=== PATIENT | female | born 2000 | race Hispanic/Latino ===

== ENCOUNTER 2021-11-22 15:40 | Emergency (ER) | payer OTHER ==
[~2021-11-22] VITALS: Ht 157.5 cm; Wt 47.7 kg
[2021-11-22 15:41] VITALS: BP 116/64
[2021-11-22] MEDS ORDERED: IBUP-1114 PO (20:10)
[2021-11-22 20:22] LABS: HEMATOCRIT 36.2 % (36.0-47.0); HEMOGLOBIN 12.2 g/dl (12.0-15.5); MEAN CORPUSCULAR HEMOGLOBIN 28.4 pg (27.0-33.0); MEAN CORPUSCULAR HGB CONC 33.7 g/dl (32.0-36.5); MEAN CORPUSCULAR VOLUME 84.4 fl (80.0-96.0); PLATELET COUNT, AUTOMATED 221 10^3/uL (150-450); RED BLOOD COUNT 4.29 10^6/uL (4.00-5.40); WHITE BLOOD COUNT 6.3 10^3/uL (4.0-10.0)
[2021-11-22] MEDS ORDERED: ACETAMINOPHEN 500 MG TAB PO ONE (20:50)
[2021-11-22 22:21] LABS: RSV AMPLIFICATION NEGATIVE (NEGATIVE)
== END 2021-11-22 22:55 | disposition home or self-care (01) ==
LOC: M ED 15:40
DX: O98.511 Other viral diseases complicating pregnancy, first trimester (principal); U07.1 COVID-19; O20.8 Other hemorrhage in early pregnancy; Z3A.01 Less than 8 weeks gestation of pregnancy

== ENCOUNTER 2022-07-03 14:21 | Emergency (ER) | payer OTHER ==
[~2022-07-03] VITALS: Ht 157.5 cm; Wt 60.5 kg
[~2022-07-03 14:21] MED LIST: IBUP-1114 PO
[2022-07-03 14:22] VITALS: BP 113/61
== END 2022-07-03 18:44 | disposition left against medical advice (07) ==
LOC: M ED 14:21
DX: Z53.21 Procedure and treatment not carried out due to patient leaving prior to being seen by health care provider (principal)